=== PATIENT | female | born 1985 | race Caucasian/White ===

== ENCOUNTER → 2020-02-10 11:11 | Outpatient (CLI) | payer OTHER, SELFPAY ==
--- NOTE | 2020-02-10 11:14 | DI.US.S_ITS ---
PROCEDURE: US OB FOLLOW UP INDICATIONS: MILD LEFT RENAL PYELECTASIS 6mm ON ANATOMY SCAN, EFW,JOSEE OUTSIDE/PRIOR DATING DATA: Last menstrual period (LMP): Unknown. LMP-based estimated date of delivery (EVELINA): Unknown. First dating scan (date and location): 10/27/19. Estimated date of delivery (EVELINA) from first dating scan: 03/16/20. TECHNIQUE: Real-time scanning was performed of the fetus, with image documentation and biometric measurements. COMPARISON: [facility], , US OB > 14 WEEKS, 10/27/2019, 8:00. FINDINGS: General: A single living intrauterine gestation is present. Presentation: Cephalic Placenta: Placental position is posterior without previa. Amniotic fluid index: 17.4 cm. heart rate: 120 beats per minute. Maternal cervical canal: Not adequately seen. biometrics: Biparietal diameter: 9.0 cm, 36 weeks 2 days Head circumference: 32.3 cm, 36 weeks 6 days Abdominal circumference: 33.0 cm, 36 weeks 6 days Femur length: 7.1 cm, 36 weeks 2 days Estimated gestational age from initial scan: 35 weeks 0 days Composite gestational age from present scan: 36 weeks 4 days Estimated weight and percentile: 3005 g (89th percentile) Other: A formal anatomic survey was not performed. However, there is mild dilatation of the left renal pelvis, measuring up to approximately 11 mm. Moderate dilatation of the right renal collecting system is present measuring up to 20 mm in AP dimension. The imaged portions of the right ureter also are dilated. IMPRESSION: 1. Single live intrauterine at 36 weeks 4 days (current sonographic EVELINA 03/05/20) is discordant with the dates from the prior ultrasound by 11 days. 2. Estimated weight is within 89th percentile. 3. Moderate right-sided hydronephrosis is of uncertain etiology and could potentially be related to a partial UPJ obstruction. There also is mild left-sided hydronephrosis. A ultrasound is recommended. Dictated by: Luis Abel M.D. on 02/15/2020 at 10:56 Approved by: Luis Abel M.D. on 02/15/2020 at 11:02
== END ==
PROVIDERS: Referring Provider Obstetrics & Gynecology; Visit Provider Obstetrics & Gynecology
DX: O35.8XX0 Maternal care for other (suspected) fetal abnormality and damage, not applicable or unspecified (principal); Z3A.36 36 weeks gestation of pregnancy
CPT/HCPCS: 76816

== ENCOUNTER → 2020-02-21 11:00 | Outpatient (CLI) | payer OTHER, SELFPAY ==
[2020-02-22 08:02] LABS: Strep Grp B PCR NEG for Grp B Strep
== END ==
PROVIDERS: Visit Provider Obstetrics & Gynecology
DX: Z34.83 Encounter for supervision of other normal pregnancy, third trimester (principal); Z3A.36 36 weeks gestation of pregnancy
CPT/HCPCS: 87653

== ENCOUNTER → 2020-02-28 11:16 | Outpatient (CLI) | payer OTHER, SELFPAY ==
--- NOTE | 2020-02-28 11:17 | DI.US.S_ITS ---
PROCEDURE: US OB LIMITED INDICATIONS: JOSEE AND FOLLOW UP RENAL BILATERAL PYELECTASIS OUTSIDE/PRIOR DATING DATA: Last menstrual period (LMP): Unknown. LMP-based estimated date of delivery (EVELINA): Unknown. First dating scan (date and location): 02/10/20. Estimated date of delivery (EVELINA) from first dating scan: 02/28/20. TECHNIQUE: Real-time scanning was performed of the fetus, with image documentation. COMPARISON: [facility], OB FOLLOW UP, 02/10/2020, 11:28. [facility], , OB > 14 WEEKS, 10/27/2019, 8:00. FINDINGS: A single living intrauterine gestation is present. Presentation: Vertex. Placenta: Placental position is posterior, without previa. Amniotic fluid index: 1.4 cm, normal range is 5-24 cm. heart rate: 144 beats per minute. Maternal cervical canal: Not measured Estimated gestational age from initial scan: 37 weeks 4 days Renals: Right renal pelvis measures 60 mm compared to 55 mm. Left renal pelvis measures 45 mm compared to 42 mm.. IMPRESSION: 1. Continued interval prominence of the renal collecting system, with minimal progression. Dictated by: Helena Marie M.D. on 02/28/2020 at 15:11 Approved by: Helena Marie M.D. on 02/28/2020 at 15:13
== END ==
PROVIDERS: Referring Provider Obstetrics & Gynecology; Visit Provider Obstetrics & Gynecology
DX: O35.8XX0 Maternal care for other (suspected) fetal abnormality and damage, not applicable or unspecified (principal); Z3A.37 37 weeks gestation of pregnancy
CPT/HCPCS: 76815

== ENCOUNTER → 2020-03-06 10:04 | Outpatient (CLI) | payer OTHER, SELFPAY ==
--- NOTE | 2020-03-06 10:08 | DI.US.S_ITS ---
PROCEDURE: US OB LIMITED INDICATIONS: PYELECTASIS; EFW, JOSEE OUTSIDE/PRIOR DATING DATA: Last menstrual period (LMP): Unknown. LMP-based estimated date of delivery (EVELINA): Unknown. First dating scan (date and location): 10/27/19. Estimated date of delivery (EVELINA) from first dating scan: 03/16/20. TECHNIQUE: Real-time scanning was performed of the fetus, with image documentation and biometric measurements. COMPARISON: [facility], OB FOLLOW UP, 02/10/2020, 11:28. [facility], , OB > 14 WEEKS, 10/27/2019, 8:00. [facility], OB LIMITED, 02/28/2020, 11:26. FINDINGS: General: A single live intrauterine gestation is present. Presentation: Vertex. Placenta: Placental position is right posterior fundal, without previa. Amniotic fluid index: 18.4 cm, normal range is 5-24 cm. heart rate: 145 beats per minute. Maternal cervical canal: Not seen biometrics: Biparietal diameter: 9.3 cm equals 37 weeks 6 days Head circumference: 33.8 cm equals 38 weeks 6 days Abdominal circumference: 37.3 cm equals 41 weeks 2 days Femur length: 7.7 cm equals 39 weeks 1 day Estimated gestational age from initial scan: 38 weeks 4 days Composite gestational age from present scan: 39 weeks 2 days Estimated weight and percentile: 3973 g, 93rd percentile Measurement variability for biometric dating: +/- 7 days from 14 weeks to 15 weeks 6 days gestation, +/- 10 days from 16 weeks to 21 weeks 6 days gestation, +/- 2 weeks from 22 weeks to 27 weeks 6 days gestation, +/- 3 weeks for 28 weeks gestation or later. weight reference: 4500 g or EFW >90/95% is considered macrosomia or large for gestational age. EFW <10% is small for gestational age. EFW 5% or less is considered intra-uterine growth restriction. Other: The left renal pelvis measures within normal limits at 5.3 cm, with a renal length of 4.5 cm The right renal pelvis measures 24.9 mm (previously measuring 24 mm) with a renal length of 6.6 cm (prior 6 cm) The right distal ureter is dilated to 12.4 cm. IMPRESSION: There is again seen dilatation of the right renal pelvis and the distal right ureter. Distal ureteral obstruction is suspected. A scan is recommended. Normal interval growth when compared to the prior ultrasound examination. The fetus is at the 93rd percentile for estimated weight. Please correlate with macrosomia. Dictated by: Samuel Braun M.D. on 03/06/2020 at 11:16 Approved by: Samuel Braun M.D. on 03/06/2020 at 11:21
== END ==
PROVIDERS: Referring Provider Obstetrics & Gynecology; Visit Provider Obstetrics & Gynecology
DX: O35.8XX0 Maternal care for other (suspected) fetal abnormality and damage, not applicable or unspecified (principal); Z3A.39 39 weeks gestation of pregnancy
CPT/HCPCS: 76815

== ENCOUNTER 2020-03-08 07:21 | Observation (INO) | payer OTHER, SELFPAY ==
[2020-03-08 08:49] LABS: Add Manual Diff / Slide Review NO; Basophils Absolute Auto 0 /uL (0-100); Basophils Percent Auto 0.4 % (0-2); Eosinophils Absolute Auto 100 /uL (0-450); Eosinophils Percent Auto 0.6 % (2-4); Hematocrit 32.3 % (36-46); Hemoglobin 11.2 g/dL (12.0-16.0); Lymphocytes Absolute Auto 1600 /uL (1100-4500); Lymphocytes Percent Auto 15.2 % (25-40); Mean Corpuscular HGB Conc 34.7 % (30-36); Mean Corpuscular Volume 80.7 fL (80-100); Monocytes Absolute Auto 500 /uL (0-900); Monocytes Percent Auto 5.1 % (3-14); Neutrophils Absolute Auto 8100 /uL (1500-7000); Neutrophils Percent Auto 78.7 % (50-75); Platelet Count 200 X10^3/uL (150-400); Red Cell Distribution Width 13.9 % (11.6-14.8); White Blood Cell Count 10.3 X10^3/uL (4.5-11.0)
[2020-03-08 09:02] LABS: Aspartate Aminotransferase 28 IU/L (14-36); BUN Creatinine Ratio 12.1 (6-22); Blood Urea Nitrogen 8 mg/dL (7-17); Estimated Glomerular Filt Rate > 60.0 mL/min (>60)
[2020-03-08 09:25] LABS: Creatinine Urine Random 102.7 mg/dL; Protein (Total) Urine Random 7 mg/dL (0-12); Protein Creatinine Ratio Urine 0.06 GRAM/24H
--- NOTE | 2020-03-08 11:30 | P.TNLD_ITS ---
Visit Information Visit Information Date of evaluation: 03/08/20 Reason for Evaluation: Yes non-stress test Comments/Additional reasons for admission: Brought in for NST due to report of decreased movement this morning. 34-year-old female, known to me, who reports decreased movement this morning. She does feel some movement, but not the bigger movements usually feels. Upon arriving to Center, movement returned to normal. She had some episodes of mild frequent contractions yesterday which resolved. has been complicated by right moderate hydronephrosis, being followed by weekly ultrasounds. [facility] Medical History (Updated 03/08/20 @ 21:20 by Nia Stone MD) Chicken pox (Resolved ~1991) Irregular menstrual cycle (Chronic ~1997) Left elbow fracture (Acute ~2000) Nasal congestion (Acute) Obesity (Acute) PCOS (polycystic ovarian syndrome) (Acute ~2014) Sleep apnea (Acute ~2018) (spontaneous vaginal delivery) (Acute ~2017) Tinea versicolor (Chronic ~2014) Surgical History (Updated 01/20/20 @ 18:29 by Sofia Wong) Anesthesia (Resolved) Status post ORIF of fracture of ankle (Acute ~2000) [place] teeth removed (Acute ~2007) Family History (Updated 01/20/20 @ 18:30 by Sofia Wong) Mother Cancer Hypertension Melanoma Grandfather Cancer Stroke Lung cancer Smoker Grandmother Diabetes mellitus Brother Myocardial infarction Kidney failure Social History marital status: number of children: 1 pets and animals: Yes (X 1 dog) education level: college current occupational exposures/hazards: No 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 Reports some nausea this a.m. but has not eaten anything yet. Exam Vital Signs (past 8 hours): BP 130/89, 137/93, 129/90 then 123-136/87-88 Narrative Exam Narrative: General: Well-appearing female Abdomen gravid, nontender. No right upper quadrant or epigastric tenderness Extremities: Trace pedal edema. DTR 2+ patellar, no clonus NST reactive. Baseline normal with moderate variability, positive for more than to 15 x 15 accelerations, no decelerations [place] occasional contractions Objective Labs Result Diagrams: 03/08/20 08:41 03/08/20 08:41 Labs: Laboratory Results - last 24 hr 03/08/20 03/08/20 03/08/20 08:20 08:41 08:41 WBC 10.3 RBC 4.00 Hgb 11.2 L Hct 32.3 L MCV 80.7 MCH 28.0 MCHC 34.7 RDW 13.9 Plt Count 200 Neut % (Auto) 78.7 H Lymph % (Auto) 15.2 L [place] % (Auto) 5.1 Eos % (Auto) 0.6 L Baso % (Auto) 0.4 Neut # (Auto) 8100 H Lymph # (Auto) 1600 [place] # (Auto) 500 Eos # (Auto) 100 Baso # (Auto) 0 BUN 8 Creatinine 0.66 Estimated GFR > 60.0 BUN/Creatinine Ratio 12.1 Uric Acid 6.0 AST 28 U Random Total Protein 7 Urine Creatinine 102.7 Protein/Creatinin Ratio 0.06 Evaluation Evaluation Laboratory results: Laboratory Tests 03/08/20 03/08/20 03/08/20 08:20 08:41 08:41 WBC 10.3 RBC 4.00 Hgb 11.2 L Hct 32.3 L MCV 80.7 MCH 28.0 MCHC 34.7 RDW 13.9 Plt Count 200 Neut % (Auto) 78.7 H Lymph % (Auto) 15.2 L [place] % (Auto) 5.1 Eos % (Auto) 0.6 L Baso % (Auto) 0.4 Neut # (Auto) 8100 H Lymph # (Auto) 1600 [place] # (Auto) 500 Eos # (Auto) 100 Baso # (Auto) 0 BUN 8 Creatinine 0.66 Estimated GFR > 60.0 BUN/Creatinine Ratio 12.1 Uric Acid 6.0 AST 28 U Random Total Protein 7 Urine Creatinine 102.7 Protein/Creatinin Ratio 0.06 Diagnosis, Plan/Disposition Final Diagnosis (1) Decreased movement affecting management of mother, antepartum: Current Visit: Yes Status: Acute Plan/Disposition Plan: NST reactive, reassuring. Mild elevated DBP, on repeat the BP less than 90, but 87-88. Her baseline is the low 80s.. Preeclamptic labs ordered and were normal. She does not have any preeclamptic symptoms. Will discharge to home. She has a BP cuff at home and will check her BP. Follow-up in 2 days in the office for BP check. Advised her to call for any persistent headache, vision changes, nausea or emesis.
== END 2020-03-08 10:13 | disposition home or self-care (01) ==
PROVIDERS: Admitting Provider Obstetrics & Gynecology; Referring Provider Obstetrics & Gynecology; Visit Provider Obstetrics & Gynecology
DX: O36.8130 Decreased fetal movements, third trimester, not applicable or unspecified (principal); O99.89 Other specified diseases and conditions complicating pregnancy, childbirth and the puerperium; N13.30 Unspecified hydronephrosis; Z3A.38 38 weeks gestation of pregnancy
CPT/HCPCS: 36415; 59025; 59050; 82570; 84156; 84450; 84550; 85025; G0378; G0379

== ENCOUNTER 2020-03-12 15:36 | Observation (INO) | payer OTHER, SELFPAY ==
[2020-03-12 17:02] LABS: Add Manual Diff / Slide Review NO; Basophils Absolute Auto 0 /uL (0-100); Basophils Percent Auto 0.3 % (0-2); Eosinophils Absolute Auto 100 /uL (0-450); Eosinophils Percent Auto 0.7 % (2-4); Hematocrit 32.1 % (36-46); Hemoglobin 11.3 g/dL (12.0-16.0); Lymphocytes Absolute Auto 1800 /uL (1100-4500); Lymphocytes Percent Auto 17.4 % (25-40); Mean Corpuscular HGB Conc 35.1 % (30-36); Mean Corpuscular Hemoglobin 28.5 PG (26-34); Mean Corpuscular Volume 81.2 fL (80-100); Monocytes Absolute Auto 700 /uL (0-900); Monocytes Percent Auto 6.9 % (3-14); Neutrophils Absolute Auto 7700 /uL (1500-7000); Neutrophils Percent Auto 74.7 % (50-75); Platelet Count 209 X10^3/uL (150-400); Red Blood Cell Count 3.96 X10^6/uL (4.0-5.2); White Blood Cell Count 10.3 X10^3/uL (4.5-11.0)
[2020-03-12 17:12] LABS: Creatinine Urine Random 43.2 mg/dL; Protein (Total) Urine Random 9 mg/dL (0-12)
[2020-03-12 17:18] LABS: Aspartate Aminotransferase 24 IU/L (14-36); BUN Creatinine Ratio 14.8 (6-22); Blood Urea Nitrogen 9 mg/dL (7-17); Estimated Glomerular Filt Rate > 60.0 mL/min (>60); Uric Acid 6.1 mg/dL (2.5-6.2)
--- NOTE | 2020-03-12 19:21 | PM.OBTRLD ---
Visit Information Visit Information Date of evaluation: 03/12/20 Primary OB Provider: Nia Stone On-call OB Provider: Kathe Daugherty Reason for Evaluation: Yes other Comments/Additional reasons for admission: This patient is a 34yo @39+3 with a complicated by pyelectasis, presenting for evaluation for preeclampsia after feeling nauseated earlier today and finding her BP to be 151/99 on her home cuff. She denies ALAN, visual changes, SOB, chest pain, RUQ pain, contractions, decreased movement, vaginal bleeding, loss of fluid, or any other complaints. She has been monitored in clinic for pressures above her baseline in the last week, though not hypertensive. She has been evaluated by M for right sided pyelectasis and a dilated right ureter, has a peds urology consult pending. Baby will need renal imaging prior to discharge and to be on antibiotic prophylaxis, amoxicillin 25 mg/kg daily. Of note, abdominal girth is somewhat increased, but per MFM this does not increase risk of shoulder dystocia. She has a history of an uncomplicated prior followed by term delivery, and an early SAB. She has no other health navigator, medical, surgical, or family history. [facility] Medical History Chicken pox (Resolved ~1991) Irregular menstrual cycle (Chronic ~1997) Left elbow fracture (Acute ~2000) Nasal congestion (Acute) Obesity (Acute) PCOS (polycystic ovarian syndrome) (Acute ~2014) Sleep apnea (Acute ~2018) (spontaneous vaginal delivery) (Acute ~2017) Tinea versicolor (Chronic ~2014) Surgical History Anesthesia (Resolved) Status post ORIF of fracture of ankle (Acute ~2000) [place] teeth removed (Acute ~2007) Family History Mother Cancer Hypertension Melanoma Grandfather Cancer Stroke Lung cancer Smoker Grandmother Diabetes mellitus Brother Myocardial infarction Kidney failure Social History marital status: number of children: 1 pets and animals: Yes (X 1 dog) education level: college current occupational exposures/hazards: No 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: [employer] special lesli needs: No Smoking Status: Never smoker second hand exposure: No substance use type: does not use Review of Systems Constitutional Constitutional: Reports system reviewed and no additional complaints, except as documented Cardiovascular Cardiovascular: Reports system reviewed; no additional complaints, except as documented Respiratory Respiratory: Reports system reviewed and no additional complaints, except as documented Gastrointestinal Gastrointestinal: Reports system reviewed and no additional complaints, except as documented Genitourinary Genitourinary: Reports system reviewed and no additional complaints, except as documented Neurologic Neurologic: Reports system reviewed and no additional complaints, except as documented Exam Vital Signs (past 8 hours): 129-151/79-102. Of note, more elevated blood pressures when repeat vitals taken just after covid nasal swab performed. Objective Labs Result Diagrams: 03/12/20 16:50 03/12/20 16:50 Labs: Laboratory Results - last 24 hr 03/12/20 03/12/20 03/12/20 15:45 16:50 16:50 WBC 10.3 RBC 3.96 L Hgb 11.3 L Hct 32.1 L MCV 81.2 MCH 28.5 MCHC 35.1 RDW 14.0 Plt Count 209 Neut % (Auto) 74.7 Lymph % (Auto) 17.4 L [place] % (Auto) 6.9 Eos % (Auto) 0.7 L Baso % (Auto) 0.3 Neut # (Auto) 7700 H Lymph # (Auto) 1800 [place] # (Auto) 700 Eos # (Auto) 100 Baso # (Auto) 0 BUN 9 Creatinine 0.61 Estimated GFR > 60.0 BUN/Creatinine Ratio 14.8 Uric Acid 6.1 AST 24 U Random Total Protein 9 Urine Creatinine 43.2 Protein/Creatinin Ratio 0.20 Evaluation Evaluation Baseline heart rate: 140 Variability: Moderate (11-25) monitor accelerations: Present monitor decelerations: Absent Category of Tracing: I Cervical dilation (cm): 1 Cervical effacement (%): 50 station: -4 Laboratory results: Laboratory Tests 03/12/20 03/12/20 03/12/20 15:45 16:50 16:50 WBC 10.3 RBC 3.96 L Hgb 11.3 L Hct 32.1 L MCV 81.2 MCH 28.5 MCHC 35.1 RDW 14.0 Plt Count 209 Neut % (Auto) 74.7 Lymph % (Auto) 17.4 L [place] % (Auto) 6.9 Eos % (Auto) 0.7 L Baso % (Auto) 0.3 Neut # (Auto) 7700 H Lymph # (Auto) 1800 [place] # (Auto) 700 Eos # (Auto) 100 Baso # (Auto) 0 BUN 9 Creatinine 0.61 Estimated GFR > 60.0 BUN/Creatinine Ratio 14.8 Uric Acid 6.1 AST 24 U Random Total Protein 9 Urine Creatinine 43.2 Protein/Creatinin Ratio 0.20 Comments: BPP 10/10. JOSEE 15.9. Vertex presentation. EFW 8# per most recent growth US. Diagnosis, Plan/Disposition Plan/Disposition Plan: This patient feels well in the center, and meets diagnostic criteria for gestational hypertension but not pre-eclampsia. We discussed that after 37 weeks, this diagnosis is an indication for delivery, and discussed the mechanism of induction of labor given her unfavorable cervix. We also discussed that given that rapid covid tests are not available, tests done now will result in approximately 24 hours. We discussed that without a negative test, patients wear masks during labor and their partners cannot attend deliveries. We discussed that the risk of progression to severe preeclampsia in 24 hours is low, but that the risks include seizure and stroke along with placental abruption and, rarely, . We discussed symptoms of progression into preeclampsia including headache, visual changes, and RUQ pain, and the patient plans to continue to monitor her blood pressures at home tomorrow. Patient is now scheduled for induction of labor with cervical ripening to start tomorrow evening, 23 hours after discharge. Patient and partner vocalized understanding of all of the above, and all questions were answered. OB Disposition: home
== END 2020-03-12 20:00 | disposition home or self-care (01) ==
PROVIDERS: Admitting Provider Obstetrics & Gynecology; Referring Provider Obstetrics & Gynecology; Visit Provider Obstetrics & Gynecology
DX: O13.3 Gestational [pregnancy-induced] hypertension without significant proteinuria, third trimester (principal); O35.8XX0 Maternal care for other (suspected) fetal abnormality and damage, not applicable or unspecified; Z3A.39 39 weeks gestation of pregnancy
CPT/HCPCS: 59025; 59050; 82570; 84156; 84450; 84550; 85025; G0378; G0379

== ENCOUNTER 2020-03-13 18:14 | Inpatient (IN) | payer OTHER, SELFPAY ==
--- NOTE | 2020-03-13 19:28 | P.HPOB_ITS ---
OB HPI Date/Time Date of admission: 03/13/20 Date Patient Seen: 03/13/20 Time Patient Seen: 19:20 History of Present Condition Chief complaint: : 3 Para: 1 Estimated Date of Delivery: 03/16/20 Estimated Gestational Age (weeks): 39 Narrative: This patient is a 34yo @39+4 with a complicated by pyelectasis, presenting for induction for gestational hypertension. She reports that her home BPs since yesterday have been 130s/80s-90s, and she has had no further symptoms. She denies ALAN, visual changes, SOB, chest pain, RUQ pain, contractions, decreased movement, vaginal bleeding, loss of fluid, or any other complaints. She has been monitored in clinic for pressures above her baseline in the last week, though not hypertensive. She has been evaluated by MFM for right sided pyelectasis and a dilated right ureter, has a peds urology consult pending. Baby will need renal imaging prior to discharge and to be on antibiotic prophylaxis, amoxicillin 25 mg/kg daily. Of note, abdominal girth is somewhat increased, but per MFM this does not increase risk of shoulder dystocia. She has a history of an uncomplicated prior followed by term delivery, and an early SAB. She has no other financial risk manager, medical, surgical, or family history. Indications Indication for induction OB: other (gHTN) History of Present care: good care Preadmission Labs Blood type: AB (+) positive -: Antibody screen: negative, GBS status: negative, HBsAG: negative, HIV: negative and RPR/VDLR: negative -: Gonorrhea screen: not detected -: Varicella: immune Integrated screen: low risk 1 hr GTT: 92 Prior (ies) History: G1: 08/2014, 10 wk SAB, uncomplicated G2: 03/2018, , 39+4, 8#3, F, uncomplicated Evaluation Evaluation Baseline heart rate: 140 Variability: Average (6-10) monitor accelerations: Present monitor decelerations: Absent Category of Tracing: I PFSH Medical History Chicken pox (Resolved ~1991) Irregular menstrual cycle (Chronic ~1997) Left elbow fracture (Acute ~2000) Nasal congestion (Acute) Obesity (Acute) PCOS (polycystic ovarian syndrome) (Acute ~2014) Sleep apnea (Acute ~2018) (spontaneous vaginal delivery) (Acute ~2017) Tinea versicolor (Chronic ~2014) Surgical History Anesthesia (Resolved) Status post ORIF of fracture of ankle (Acute ~2000) [place] teeth removed (Acute ~2007) Family History Mother Cancer Hypertension Melanoma Grandfather Cancer Stroke Lung cancer Smoker Grandmother Diabetes mellitus Brother Myocardial infarction Kidney failure Social History marital status: number of children: 1 pets and animals: Yes (X 1 dog) education level: college current occupational exposures/hazards: No 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: [employer] special lesli needs: No Smoking Status: Never smoker second hand exposure: No substance use type: does not use Meds Home Medications and Allergies Home Medications Medication Instructions Recorded Confirmed Type calcium carbonate 200 mg calcium 200 mg PO BID 01/12/20 03/10/20 History (500 mg) chewable tablet prenat.vits,kulwinder,odi-qasg-abdtu 1 tab PO DAILY 01/12/20 03/10/20 History Allergies Allergy/AdvReac Type Severity Reaction Status Date / Time No Known Drug Allergies Allergy Verified 03/10/20 10:47 Review of Systems Constitutional Constitutional: Reports system reviewed and no additional complaints, except as documented Cardiovascular Cardiovascular: Reports system reviewed; no additional complaints, except as documented Respiratory Respiratory: Reports system reviewed and no additional complaints, except as documented Gastrointestinal Gastrointestinal: Reports system reviewed and no additional complaints, except as documented Genitourinary Genitourinary: Reports system reviewed and no additional complaints, except as documented Neurologic Neurologic: Reports system reviewed and no additional complaints, except as documented Exam Vital Signs (past 8 hours): 129/79, HR 114, T 36.8C Const General: cooperative, healthy appearing and comfortable Resp Effort & Inspection: normal respiratory effort Auscultation: clear to auscultation bilaterally Cardio Rate: regular rate Rhythm: regular rhythm GI Palpation: soft and No tender External Female Exam: external appearance normal Extrem General: normal to inspection Assessment and Plan Assessment and Plan Assessment and Plan narrative: This patient presents for induction of labor for gestational hypertension. Her initial BP was not elevated, she is feeling well, and PIH labs will be repeated along with her routine admission labs. Plan is for cervical ripening with cervidil followed by pitocin induction in the morning. - CBC, T&S, PIH panel, urine p/c ratio - monitoring per protocol - cervidil when feasible
[2020-03-13] MEDS: DINOPROSTONE VAG (CERVIDIL) 10 MG VAG (20:18)
[2020-03-13 20:29] VITALS: BP 129/79
[2020-03-13 21:12] LABS: Add Manual Diff / Slide Review NO; Basophils Absolute Auto 0 /uL (0-100); Basophils Percent Auto 0.2 % (0-2); Eosinophils Absolute Auto 100 /uL (0-450); Eosinophils Percent Auto 0.6 % (2-4); Hematocrit 31.8 % (36-46); Lymphocytes Absolute Auto 1800 /uL (1100-4500); Lymphocytes Percent Auto 16.5 % (25-40); Mean Corpuscular HGB Conc 34.5 % (30-36); Mean Corpuscular Volume 81.2 fL (80-100); Monocytes Absolute Auto 600 /uL (0-900); Monocytes Percent Auto 5.1 % (3-14); Neutrophils Absolute Auto 8500 /uL (1500-7000); Neutrophils Percent Auto 77.6 % (50-75); Platelet Count 209 X10^3/uL (150-400); Red Blood Cell Count 3.91 X10^6/uL (4.0-5.2); Red Cell Distribution Width 13.8 % (11.6-14.8)
[2020-03-13 21:21] LABS: Aspartate Aminotransferase 20 IU/L (14-36); BUN Creatinine Ratio 13.5 (6-22); Blood Urea Nitrogen 10 mg/dL (7-17); Estimated Glomerular Filt Rate > 60.0 mL/min (>60)
[2020-03-14 02:03] LABS: Creatinine Urine Random 92.1 mg/dL; Protein (Total) Urine Random 8 mg/dL (0-12); Protein Creatinine Ratio Urine 0.08 GRAM/24H
[2020-03-14] MEDS: LACTATED RINGERS 1,000 ML 100 ML IV (08:06)
--- NOTE | 2020-03-14 08:57 | PM.OBPNLAB ---
Date/Time Date Patient Seen: 03/14/20 Time Patient Seen: 08:00 Pain Control Pain control: epidural Pelvic Exam Dilation (cm): 7 Effacement (%): 100 station: -1 Amniotic membrane status: Ruptured Comments: Spontaneous rupture membranes at 0220, thin meconium. Cervidil fell out with the spontaneous rupture membranes. Contractions Monitor mode: External Contraction frequency (min): 2 (q 2 1/2 minutes) Contraction pattern: Regular Contraction intensity: Strong/Firm Status status: Category ll Heart Rate Baseline: 155 Monitor Accelerations: Periodic (no spontaneous accelerations currently, but good acceleration now after exam) Monitor Decelerations: Absent Monitor Variability: Minimal Comments: Called at 0230 with patient's SROM. Patient only with rare deceleration at that time, resolved. I checked in by phone after her epidural at 0720 and informed of the severe deceleration after epidural with BP dropped. Resolved with IV hydration and ephedrine. On review of EFM, prior FHR with positive accelerations and moderate variability, rare variable or late deceleration initially. Just prior to the epidural with sitting, she had some subtle recurrent late decelerations and decreased variability. After the epidural she had an approximately 90 second severe deceleration which resolved with the position change, hydration and ephedrine. Now EFM still with some decreased variability, no further decelerations. No spontaneous accelerations, but positive acceleration with exam at 8:00 a.m. Assessment and Plan Assessment: active labor (Status post Cervidil for induction) and induction ongoing Comments: Continue close observation.
--- NOTE | 2020-03-14 09:51 | PM.OBPNLAB ---
Date/Time Date Patient Seen: 03/14/20 Time Patient Seen: 09:51 Pain Control Pain control: tolerating well and epidural Comments: Feeling some increased rectal pressure Pelvic Exam Dilation (cm): 9 Effacement (%): 100 station: +1 Amniotic membrane status: Ruptured Comments: Cervix with anterior lip but extending around to left side. Initially had her push with the contraction to try to reduce the anterior lip, but then noted cervix extends down on her left side. position JOHANNA, just past LOT Contractions Monitor mode: External Contraction frequency (min): 2 (q 2 1/2 minutes) Contraction pattern: Regular Contraction intensity: Strong/Firm Status status: Category ll Heart Rate Baseline: 150 Monitor Accelerations: Absent (But positive acceleration with exam.) Monitor Decelerations: Absent Monitor Variability: Minimal Assessment and Plan Assessment: active labor Plan: continuous present management Comments: Will recheck cervix in approximately 20 minutes, earlier as needed
[2020-03-14] MEDS: OXYTOCIN 10 UNIT/ML VIAL 20 UNIT (10:15)
--- NOTE | 2020-03-14 11:06 | P.PCNOB_ITS ---
Events: Induced HTN Labor & Delivery Delivery date: 03/14/20 Cervical ripening method: per Cervidil protocol Induction method: other (Spontaneous rupture membranes) Route of delivery: L&D Laceration Description: Perineal - 2nd Degree (small) Delivery repair: chromic (3-0 chromic) Estimated blood loss (mL): 300 Anesthesia type: Epidural Complications: none Narrative: She progressed to completely dilated. She began pushing, pushed over 2 contractions and had a spontaneous vaginal delivery over an intact perineum from the JOHANNA position. No nuchal cord was present. Anterior followed by posterior shoulder were delivered without difficulty with the patient pushing, followed by the remainder of the body. A baby girl was delivered at 1007. The baby cried spontaneously, appeared vigorous and was placed on the maternal abdomen. After 1 minute, cord was clamped and cut. Placenta delivered spontaneously approximately 5 minutes later. She had normal bleeding after delivery of the placenta. She was given routine Pitocin IV. On inspection she had a small second-degree perineal laceration which appeared to have opened up along a prior scar tissue. It was repaired in the usual fashion with 3-0 chromic. Approximately 3 mL of 1% lidocaine was injected for local anesthesia. She did well and was left to recover in good condition. Weight was 9 lb 12 oz. Apgars 9 and 9 at 1 and 5 minutes respectively. Baby 1: Infant gender: Female Presentation: vertex position: Right Occiput Anterior (left occiput anterior) Placenta delivery description: Spontaneous cord vessel description: 3 Vessels Plan for aftercare: Left to recover in good condition. Patient was breast- feeding.
[2020-03-14] MEDS: METHYLERGONOVINE 0.2 MG/ML VIAL IM (12:51)
[2020-03-14] MEDS: miSOPROStoL 200 MCG TABLET 800 MCG PR (12:58)
[2020-03-14] MEDS: IBUPROFEN 600 MG TABLET PO ×2 (12:58→19:55)
[2020-03-14] MEDS: miSOPROStoL 200 MCG TABLET PR (12:59)
--- NOTE | 2020-03-14 13:06 | PM.OBPN.1 ---
Objective Labs Result Diagrams: 03/13/20 19:00 03/13/20 19:00 Labs: Laboratory Results - last 24 hr 03/13/20 03/13/20 03/13/20 19:00 19:00 19:00 WBC 11.0 RBC 3.91 L Hgb 11.0 L Hct 31.8 L MCV 81.2 MCH 28.0 MCHC 34.5 RDW 13.8 Plt Count 209 Neut % (Auto) 77.6 H Lymph % (Auto) 16.5 L [place] % (Auto) 5.1 Eos % (Auto) 0.6 L Baso % (Auto) 0.2 Neut # (Auto) 8500 H Lymph # (Auto) 1800 [place] # (Auto) 600 Eos # (Auto) 100 Baso # (Auto) 0 BUN 10 Creatinine 0.74 Estimated GFR > 60.0 BUN/Creatinine Ratio 13.5 Uric Acid 6.0 AST 20 U Random Total Protein Urine Creatinine Protein/Creatinin Ratio Blood Type AB Positive Antibody Screen Negative 03/14/20 01:10 WBC RBC Hgb Hct MCV MCH MCHC RDW Plt Count Neut % (Auto) Lymph % (Auto) [place] % (Auto) Eos % (Auto) Baso % (Auto) Neut # (Auto) Lymph # (Auto) [place] # (Auto) Eos # (Auto) Baso # (Auto) BUN Creatinine Estimated GFR BUN/Creatinine Ratio Uric Acid AST U Random Total Protein 8 Urine Creatinine 92.1 Protein/Creatinin Ratio 0.08 Blood Type Antibody Screen Assessment & Plan Time Spent With Patient Time: Total time spent is greater than 50% in coordination of care (as documented) at patient's floor/unit and/or counseling patient:
[2020-03-14] MEDS: CARBOPROST 250 MCG/ML AMPUL IM ×2 (13:10→14:48)
[2020-03-14 13:21] VITALS: BP 128/64; PULSE 72; RESP 17; TEMP 36.8
[2020-03-14] MEDS: TRANEXAMIC ACID 1,000 MG in SODIUM CHLORIDE 0.9% 100 ML 400 ML IV ×2 (13:41→14:34)
[2020-03-14 14:42] LABS: Prothrombin Time 11.6 SECONDS (10.1-12.7)
[2020-03-14 14:43] LABS: Hematocrit 34.1 % (36-46); Hemoglobin 11.7 g/dL (12.0-16.0); Mean Corpuscular HGB Conc 34.2 % (30-36); Mean Corpuscular Hemoglobin 27.6 PG (26-34); Mean Corpuscular Volume 80.8 fL (80-100); Platelet Count 201 X10^3/uL (150-400); Red Blood Cell Count 4.22 X10^6/uL (4.0-5.2); Red Cell Distribution Width 14.2 % (11.6-14.8); White Blood Cell Count 19.7 X10^3/uL (4.5-11.0)
[2020-03-14 14:49] LABS: PTT Partial Thromboplastin Tim 26 SECONDS (26.4-36.2)
[2020-03-14] MEDS: AMPICILLIN/SULBACTAM 3 GM 3 GM in SODIUM CHLORIDE 0.9% 100 ML IV (15:00)
--- NOTE | 2020-03-14 15:13 | P.PNOB_ITS ---
Subjective - OB Subjective Patient comments: other (Patient felt heavier bleeding through vagina and called the nurse. Initially crampy after the Hemabate, now improved) Date Patient Seen: 03/14/20 Time Patient Seen: 13:00 Interval history: Called with report of patient having heavy bleeding, over 2 hours status post spontaneous vaginal delivery. She had only had a small second-degree perineal laceration which resolved visible externally. Exam Vital Signs (past 8 hours): Afebrile. BP 128/78, after Methergine now BP 150/73. Pulse 91 Beaver placed and good urine output, with clear urine in Beaver tube as well. Narrative Exam Narrative: General well-appearing female. Not feeling any lightheadedness Abdomen: Soft, nondistended Fundus U +4, firm. Rectal exam: Misoprostol 1000 mcg given. Vaginal/bimanual examination, approximately 300 mL of clot evacuated from uterus, both at lower uterine segment and within the uterus. Uterine massage given. Bleeding decreased to intermittent small trickle of bright red blood. Fundus overall firm. Objective Labs Result Diagrams: 03/15/20 05:30 03/13/20 19:00 Labs: Laboratory Results - last 24 hr 03/13/20 03/13/20 03/13/20 19:00 19:00 19:00 WBC 11.0 RBC 3.91 L Hgb 11.0 L Hct 31.8 L MCV 81.2 MCH 28.0 MCHC 34.5 RDW 13.8 Plt Count 209 Neut % (Auto) 77.6 H Lymph % (Auto) 16.5 L [place] % (Auto) 5.1 Eos % (Auto) 0.6 L Baso % (Auto) 0.2 Neut # (Auto) 8500 H Lymph # (Auto) 1800 [place] # (Auto) 600 Eos # (Auto) 100 Baso # (Auto) 0 PT INR APTT BUN 10 Creatinine 0.74 Estimated GFR > 60.0 BUN/Creatinine Ratio 13.5 Uric Acid 6.0 AST 20 U Random Total Protein Urine Creatinine Protein/Creatinin Ratio Blood Type AB Positive Antibody Screen Negative 03/14/20 03/14/20 03/14/20 01:10 13:47 13:47 WBC 19.7 H D RBC 4.22 Hgb 11.7 L Hct 34.1 L MCV 80.8 MCH 27.6 MCHC 34.2 RDW 14.2 Plt Count 201 Neut % (Auto) Lymph % (Auto) [place] % (Auto) Eos % (Auto) Baso % (Auto) Neut # (Auto) Lymph # (Auto) [place] # (Auto) Eos # (Auto) Baso # (Auto) PT 11.6 INR 1.0 APTT BUN Creatinine Estimated GFR BUN/Creatinine Ratio Uric Acid AST U Random Total Protein 8 Urine Creatinine 92.1 Protein/Creatinin Ratio 0.08 Blood Type Antibody Screen 03/14/20 13:47 WBC RBC Hgb Hct MCV MCH MCHC RDW Plt Count Neut % (Auto) Lymph % (Auto) [place] % (Auto) Eos % (Auto) Baso % (Auto) Neut # (Auto) Lymph # (Auto) [place] # (Auto) Eos # (Auto) Baso # (Auto) PT INR APTT 26 L BUN Creatinine Estimated GFR BUN/Creatinine Ratio Uric Acid AST U Random Total Protein Urine Creatinine Protein/Creatinin Ratio Blood Type Antibody Screen Assessment & Plan Plan day: 0 plan OB: other Comments: Delayed hemorrhage, due to probable uterine atony. Uterus U +4. After delivery she had been at or 1 finger below the umbilicus. Clots evacuated from the uterus. Misoprostol 1000 mcg given and Methergine 0.2 mg IM x1 given since BP was normal at that time. After evacuation of the clots, her bleeding decreased but she still had an intermittent trickle of brighter red blood. Hemabate 250 mcg given at 1:10 p.m.. CBC, PT, PTT ordered. I verified she had a blood type and antibody screen in the blood bank. A 2nd IV was placed. Her bleeding fairly well controlled, not much on her pad until she lifted her legs or some minimal pressure on her fundus and then she would have spurt, flow of bright red blood. Her Pitocin had finished after delivery and an additional bag of Pitocin 30 units in 500 mls was infused. Tranexamic acid 1 g IV x1 given, finished infusing at 2:00 p.m. With observation she was not having anything spontaneously on the pad, but with elevating her legs to check or to look, with movement again would still have a spurt of some heavier than normal bleeding onto the pad. Repeat exam performed. Small amount of clots evacuated from lower uterine segment. I could not reach past the lower uterine segment since uterus now rhett down well. I could feel a little clot the on my finger, but uterus significantly contracted down. Repeat tranexamic acid 1 g IV given, approximate of 30 minutes after 1st dose and Hemabate 250 mcg given 90 minutes after her 1st dose. Fundus is U +2, firm. Her bleeding decreased to normal and has continued to remain light. Unasyn 3 g IV x1 given. Delayed hemorrhage, improved after multiple uterotonics and tranexamic acid. Bleeding light to minimal now. QBL 1574 ml Will repeat CBC in a.m. Time Spent With Patient Time: Total time spent is greater than 50% in coordination of care (as documented) at patient's floor/unit and/or counseling patient: Time with patient: Greater than 35 minutes
[2020-03-14 19:04] LABS: COVID19 -Nasal RAPID Negative (Negative)
[2020-03-15] MEDS: IBUPROFEN 600 MG TABLET PO (02:02)
[2020-03-15 05:56] LABS: Add Manual Diff / Slide Review NO; Basophils Absolute Auto 0 /uL (0-100); Basophils Percent Auto 0.3 % (0-2); Eosinophils Absolute Auto 0 /uL (0-450); Eosinophils Percent Auto 0.3 % (2-4); Hematocrit 28.7 % (36-46); Hemoglobin 9.9 g/dL (12.0-16.0); Lymphocytes Absolute Auto 1300 /uL (1100-4500); Lymphocytes Percent Auto 13.2 % (25-40); Mean Corpuscular HGB Conc 34.4 % (30-36); Mean Corpuscular Volume 81.3 fL (80-100); Monocytes Absolute Auto 700 /uL (0-900); Monocytes Percent Auto 6.9 % (3-14); Neutrophils Absolute Auto 7900 /uL (1500-7000); Neutrophils Percent Auto 79.3 % (50-75); Platelet Count 175 X10^3/uL (150-400); Red Blood Cell Count 3.53 X10^6/uL (4.0-5.2); Red Cell Distribution Width 14.3 % (11.6-14.8)
--- NOTE | 2020-03-15 08:46 | PM.OBPN.1 ---
Subjective - OB Subjective Patient comments: no complaints, pain well controlled and tolerating diet baby status: doing well feeding status: exclusively breast feeding Narrative: Feels well. He ambulating without problems. Feels steady on her feet. Lochia light. without problems. Moods are fine. Date Patient Seen: 03/15/20 Time Patient Seen: 10:00 Exam Vital Signs (past 8 hours): Afebrile, BP 128/86 Pulse 101 RR Narrative Exam Narrative: General: Well-appearing female Abdomen: Soft, nontender, nondistended. Fundus U-2, firm, nontender Extremities: Trace pedal edema Objective Labs Result Diagrams: 03/15/20 05:30 03/13/20 19:00 Labs: Laboratory Results - last 24 hr 03/12/20 03/14/20 03/14/20 19:42 13:47 13:47 WBC 19.7 H D RBC 4.22 Hgb 11.7 L Hct 34.1 L MCV 80.8 MCH 27.6 MCHC 34.2 RDW 14.2 Plt Count 201 Neut % (Auto) Lymph % (Auto) [place] % (Auto) Eos % (Auto) Baso % (Auto) Neut # (Auto) Lymph # (Auto) [place] # (Auto) Eos # (Auto) Baso # (Auto) PT 11.6 INR 1.0 APTT COVID-19 PCR Negative 03/14/20 03/15/20 13:47 05:30 WBC 10.0 RBC 3.53 L Hgb 9.9 L Hct 28.7 L MCV 81.3 MCH 28.0 MCHC 34.4 RDW 14.3 Plt Count 175 Neut % (Auto) 79.3 H Lymph % (Auto) 13.2 L [place] % (Auto) 6.9 Eos % (Auto) 0.3 L Baso % (Auto) 0.3 Neut # (Auto) 7900 H Lymph # (Auto) 1300 [place] # (Auto) 700 Eos # (Auto) 0 Baso # (Auto) 0 PT INR APTT 26 L COVID-19 PCR Assessment & Plan Plan day: 1 plan OB: discharge home Comments: Patient status post delayed hemorrhage. Lochia remains light now. Ambulating without problems. Desires discharge to home. Mild gestational hypertension, only brief BP elevation after Methergine x1 yesterday when BP was normal, now remains improved. Discharge home. She will check her BP this week at home and call if elevated. If normal routine follow-up in 5 weeks. Time Spent With Patient Time: Total time spent is greater than 50% in coordination of care (as documented) at patient's floor/unit and/or counseling patient: Time with patient: less than 15 minutes
--- NOTE | 2020-03-15 11:34 | P.DS_ITS ---
History of Present Illness History of Present Illness Chief complaint: Labor & Delivery Narrative: Called with report of patient having heavy bleeding, over 2 hours status post spontaneous vaginal delivery. She had only had a small second-degree perineal laceration which resolved visible externally. Discharge Providers Provider Date of admission: 03/13/20 18:14 Consults: 03/15/20 10:59 Consult to Country Printer Apprentice Routine Comment: Discharge provider: Nia Stone MD Exam - Pediatric Vital Signs Vital Signs: Vital Signs BP 129/79 03/13/20 20:29 Objective Labs Result Diagrams: 03/15/20 05:30 03/13/20 19:00 Labs: Laboratory Results - last 24 hr 03/12/20 03/14/20 03/14/20 19:42 13:47 13:47 WBC 19.7 H D RBC 4.22 Hgb 11.7 L Hct 34.1 L MCV 80.8 MCH 27.6 MCHC 34.2 RDW 14.2 Plt Count 201 Neut % (Auto) Lymph % (Auto) [place] % (Auto) Eos % (Auto) Baso % (Auto) Neut # (Auto) Lymph # (Auto) [place] # (Auto) Eos # (Auto) Baso # (Auto) PT 11.6 INR 1.0 APTT COVID-19 PCR Negative 03/14/20 03/15/20 13:47 05:30 WBC 10.0 RBC 3.53 L Hgb 9.9 L Hct 28.7 L MCV 81.3 MCH 28.0 MCHC 34.4 RDW 14.3 Plt Count 175 Neut % (Auto) 79.3 H Lymph % (Auto) 13.2 L [place] % (Auto) 6.9 Eos % (Auto) 0.3 L Baso % (Auto) 0.3 Neut # (Auto) 7900 H Lymph # (Auto) 1300 [place] # (Auto) 700 Eos # (Auto) 0 Baso # (Auto) 0 PT INR APTT 26 L COVID-19 PCR Discharge Plan Discharge Plan Patient Disposition: Home Discharge comment: Follow-up appointment in 5 weeks Discharge orders & Medications Prescriptions: New acetaminophen 325 mg Tablet 650 mg PO Q6HR PRN (Reason: Pain, Mild (1-3)) Qty: 0 RF: 0 ibuprofen 600 mg Tablet 600 mg PO Q6HR PRN (Reason: Pain, Mild (1-3)) Qty: 0 RF: 0 Continued prenat.vits,kulwinder,[id number] Tablet 1 tab PO DAILY RF: 0 calcium carbonate [Tums [place]hers] 200 mg calcium (500 mg) tablet,chewable 200 mg PO BID RF: 0 Follow up/Referrals: Nia Stone MD [Physician] - 1 Month (follow up in 5 weeks for a visit with me) Discharge Health Status Multidrug resistant organism: No MDRO Diet/Activity/Treatments Diet: Regular Activity: Nothing in the vagina, no tampons and no intercourse for 6 weeks. Call for heavy vaginal bleeding, persistent fever greater than 100.1, persistent nausea or vomiting, or or persistent abdominal pain Skin/Wound/Dressing Care Report to your healthcare provider any signs of infection, such as:: chills, fever and increased pain
[2020-03-15 14:11] LABS: Blood Urea Nitrogen 10 mg/dL (7-17); Calcium 8.6 mg/dL (8.4-10.2); Carbon Dioxide 24 mmol/L (22-32); Chloride 107 mmol/L (98-107); Estimated Glomerular Filt Rate > 60.0 mL/min (>60); Glucose 81 mg/dL (70-100); HEMOLYSIS < 15 (0-50); Potassium 3.9 mmol/L (3.4-5.1); Sodium 137 mmol/L (137-145)
--- NOTE | 2020-03-17 20:48 | PM.OBDS.1 ---
Discharge Providers Provider Date of admission: 03/13/20 18:14 Discharge Date: 03/15/20 Consults: 03/15/20 10:59 Consult to Elevator Tender Routine Comment: Discharge provider: Nia Stone MD Summary Hospital Course Date Patient Seen: 03/15/20 Time Patient Seen: 10:00 Procedures: Spontaneous vaginal delivery Induction of labor Hospital Course: This patient is a 34yo @39+4 with a complicated by right pyelectasis and dilated right ureter, who was admitted on 03/13/20 for induction for gestational hypertension. The last week she developed and initial elevated BP, but then not recurrent, borderline BP pees. She subsequently developed more persistent elevated BP's consistent with gestational hypertension. Preeclamptic labs were normal. She had an M consult for the pyelectasis/hydronephrosis grade 4, which was diagnosed and the 3rd trimester. She had also had an antepartum telemedicine consult with the pediatric urologist and paint mixer. She was followed with weekly ultrasounds to check on the kidneys and JOSEE the last few weeks of . If left kidney remained normal, it was felt that she could deliver at our institution and after a renal ultrasound, be set up for further follow-up with the pediatric urologists and paint mixer , with time frame to be determined by the ultrasound prior to discharge home. Baby was also to be discharged on prophylactic antibiotics, amoxicillin. She underwent induction of labor with starting with Cervidil for cervical ripening. She kicked into active labor with the Cervidil. After the Cervidil was removed, she continued to progress in labor and progressed to a vaginal delivery. She had a quick 2nd stage and had a spontaneous vaginal delivery of a 9 lb 12 oz female infant with Apgars of 9 and 9 at 1 and 5 minutes respectively. The baby did well . The baby did have an ultrasound on the day of and the hydraulic press tender was following up with the pediatric urologist by phone. Her BP had only a brief elevation during labor, otherwise remained normal except short elevation after receiving Methergine x1 dose. The patient had normal bleeding after delivery of the placenta, but over 2.5 hours later had a delayed hemorrhage, with the uterus firm but filled with multiple clots. Cause of the bleeding was felt to be uterine atony, likely due to the large size baby the with now uterine full of clots. She had manual evacuation of the clots and was treated with utero tonics and tranexamic acid. Initially bleeding had significantly slowed with evacuation clots and initial utero tonics but was still heavier than normal and she thus received additional doses of medication. Bleeding then decreased to very light. For total treatment she received Pitocin IV, misoprostol 1000mcg per rectum, Methergine x1 dose since her BP was normal at that time, Hemabate Q 90 minutes x2 and tranexamic acid x 2 doses. QBL was 1574ml. Hemoglobin subsequently decreased from pre delivery 11.0, on next day day 9.9. Her bleeding had then continued she remained normal. On day 1 she felt well. She was ambulating without difficulty. Her BP remained normal Lochia remained normal. She was breast-feeding without problems. She desired discharge to home and was discharged in good condition. Baby was discharged and directions for follow-up were pending from the hydraulic press tender at the time of my visit with her. She has a BP cuff at home and will check her BP at home this week and call if elevated. If BP remains normal, then routine visit in 5 weeks Discharge Diagnosis (1) Gestational hypertension: Status: Acute (2) Status post normal vaginal delivery: Status: Acute Time Spent with Patient Time attestation: Total time spent providing and/or coordinating discharge services: 15 minutes Objective Labs Result Diagrams: 03/15/20 05:30 03/15/20 13:36 Exam Vital Signs (past 8 hours): Afebrile, BP 128/86 pulse 101 Narrative Exam Narrative: General: Well-appearing female Abdomen: Soft, nontender, nondistended. Fundus U -2, firm, nontender Extremities: Trace pedal edema Discharge Plan Discharge Plan Patient Disposition: Home Discharge comment: Follow-up appointment in 5 weeks Discharge orders & Medications Prescriptions: New acetaminophen 325 mg Tablet 650 mg PO Q6HR PRN (Reason: Pain, Mild (1-3)) Qty: 0 RF: 0 ibuprofen 600 mg Tablet 600 mg PO Q6HR PRN (Reason: Pain, Mild (1-3)) Qty: 0 RF: 0 Continued prenat.vits,kulwinder,[id number] Tablet 1 tab PO DAILY RF: 0 calcium carbonate [Tums [place]] 200 mg calcium (500 mg) tablet,chewable 200 mg PO BID RF: 0 Follow up/Referrals: Nia Stone MD [Physician] - 1 Month ( Appointment on , March at 10:15 AM with check in time 10:00 am with . ) Discharge Health Status Multidrug resistant organism: No MDRO Diet/Activity/Treatments Diet: Regular Activity: Nothing in the vagina, no tampons and no intercourse for 6 weeks. Call for heavy vaginal bleeding, persistent fever greater than 100.1, persistent nausea or vomiting, or or persistent abdominal pain Skin/Wound/Dressing Care Report to your healthcare provider any signs of infection, such as:: chills, fever and increased pain Visit Report/Discharge Packet Instructions: DI for Labor and Delivery, Vaginal Discharges patient from system. Discharge Date/Time: 03/15/20 15:50
== END 2020-03-15 15:50 | disposition home or self-care (01) | DRG 807 ==
PROVIDERS: Obstetrics & Gynecology; Pediatrics; Admitting Provider Obstetrics & Gynecology; Referring Provider Obstetrics & Gynecology; Visit Provider Obstetrics & Gynecology
DX: O13.4 Gestational [pregnancy-induced] hypertension without significant proteinuria, complicating childbirth (principal); Z37.0 Single live birth; O72.2 Delayed and secondary postpartum hemorrhage; Z3A.39 39 weeks gestation of pregnancy; O70.1 Second degree perineal laceration during delivery; Z11.59 Encounter for screening for other viral diseases
CPT/HCPCS: 01967; 36415; 59050; 59200; 59410; 80048; 82570; 84156; 84450; 84550; 85025; 85027; 85610; 85730; 86850; 86900; 86901; 87635; G0379; J0295; J2210; J2590; S0191

== ENCOUNTER → 2021-07-04 15:05 | Outpatient (CLI) | payer OTHER, SELFPAY ==
--- NOTE | 2021-07-04 15:06 | DI.US.S_ITS ---
PROCEDURE: US OB <= 14 WEEKS FETUS INDICATIONS: DATING AND VIABILITY OUTSIDE/PRIOR DATING DATA: Last menstrual period (LMP): 04/25/2021. LMP-based estimated date of delivery (EVELINA): 01/30/2022. First dating scan (date and location): 07/04/2021. Estimated date of delivery (EVELINA) from first dating scan: 02/02/2022. TECHNIQUE: Real-time scanning was performed of the fetus and maternal pelvic organs, with image documentation. Endovaginal scanning was also performed to better visualize the fetus and maternal ovaries. COMPARISON: None. FINDINGS: Embryo: 2.8 cm corresponding to gestational age of 9 weeks 4 days Heart rate: 175 bpm Small perigestational hemorrhage measuring 1 x 0.7 x 0.5 cm Measurement variability in dating: +/- 4 weeks by LMP, +/- 7 days by mean sac diameter (use before 6 weeks gestation if crown-rump length not able to be measured), +/- 5 days by crown-rump length (up to 8 weeks 6 days gestation), +/- 7 days by crown-rump length (up to 13 weeks 6 days gestation). Maternal organs: Ovaries are within normal limits. IMPRESSION: 1. [place] living intrauterine at 9 weeks 4 days based on today's crown rump length. 2. Small perigestational hemorrhage. Dictated by: Vitaliy Dunaway M.D. on 07/04/2021 at 15:28 Approved by: Vitaliy Dunaway M.D. on 07/04/2021 at 15:32
== END ==
PROVIDERS: Referring Provider Obstetrics & Gynecology; Visit Provider Obstetrics & Gynecology
DX: O26.891 Other specified pregnancy related conditions, first trimester (principal); Z3A.09 9 weeks gestation of pregnancy
CPT/HCPCS: 76801; 76817

== ENCOUNTER → 2021-07-16 10:51 | Outpatient (CLI) | payer OTHER, SELFPAY ==
[2021-07-16 11:26] LABS: Add Manual Diff / Slide Review NO; Basophils Absolute Auto 100 /uL (0-100); Basophils Percent Auto 0.5 % (0-2); Eosinophils Absolute Auto 100 /uL (0-450); Eosinophils Percent Auto 1.1 % (2-4); Hematocrit 37.7 % (36-46); Hemoglobin 12.7 g/dL (12.0-16.0); Lymphocytes Absolute Auto 2100 /uL (1100-4500); Lymphocytes Percent Auto 18.1 % (25-40); Mean Corpuscular HGB Conc 33.7 % (30-36); Mean Corpuscular Hemoglobin 27.4 PG (26-34); Mean Corpuscular Volume 81.4 fL (80-100); Monocytes Absolute Auto 600 /uL (0-900); Monocytes Percent Auto 4.8 % (3-14); Neutrophils Absolute Auto 8700 /uL (1500-7000); Neutrophils Percent Auto 75.5 % (50-75); Platelet Count 244 X10^3/uL (150-400); Red Blood Cell Count 4.64 X10^6/uL (4.0-5.2); Red Cell Distribution Width 13.7 % (11.6-14.8); White Blood Cell Count 11.5 X10^3/uL (4.5-11.0)
[2021-07-16 11:38] LABS: Appearance Urine UA CLEAR; Bilirubin Urine UA NEGATIVE (NEGATIVE); Color Urine UA YELLOW; Glucose Urine UA NEGATIVE (Negative); Ketones Urine UA NEGATIVE (NEGATIVE); Leukocyte Esterase Urine UA NEGATIVE (NEGATIVE); Nitrite Urine UA NEGATIVE (Negative); Occult Blood Urine UA NEGATIVE (Negative); Protein Urine UA NEGATIVE (Negative); Specific Gravity Urine UA <=1.005 (1.000-1.035); Urobilinogen Urine UA 0.2 E.U./dL (0.2)
[2021-07-16 16:26] LABS: Hepatitis B Surface Antigen NEGATIVE s/c (NEGATIVE); Rubella Antibody IgG 50.7 IU/mL (>15)
[2021-07-16 16:48] LABS: HIV 1 & 2 Ab/Ag 4th Gen Combo NEGATIVE (NEGATIVE); Hep C Virus Ab w/Reflex Quant NEGATIVE s/c (NEGATIVE)
[2021-07-17 08:13] LABS: RPR Screen Non Reactive (Non Reactive)
[2021-07-17 14:19] LABS: Varicella IgG Antibody 905 index (Immune >165)
== END ==
PROVIDERS: Referring Provider Obstetrics & Gynecology; Visit Provider Obstetrics & Gynecology
DX: Z34.81 Encounter for supervision of other normal pregnancy, first trimester (principal)
CPT/HCPCS: 36415; 80055; 81003; 86787; 86803; 86850; 86900; 86901; 87086; 87389

== ENCOUNTER → 2021-08-01 11:48 | Outpatient (CLI) | payer OTHER, SELFPAY ==
[2021-08-01 14:03] LABS: Urine N gonorrhoeae NOT DETECTED
[2021-08-01 14:05] LABS: Urine Chlamydia NOT DETECTED
== END ==
PROVIDERS: PCP Student in an Organized Health Care Education/Training Program; Visit Provider Obstetrics & Gynecology
DX: Z11.3 Encounter for screening for infections with a predominantly sexual mode of transmission (principal); Z34.82 Encounter for supervision of other normal pregnancy, second trimester
CPT/HCPCS: 87491; 87591

== ENCOUNTER → 2021-09-03 15:08 | Outpatient (CLI) | payer OTHER, SELFPAY ==
[2021-09-07 14:57] LABS: AFP, Serum 30.6 ng/mL (.); Estriol, Free 0.98 ng/mL (.); Inhibin A, Dimeric 190.99 pg/mL (.); Inhibin A, MoM 1.55 (.); Maternal Ethnicity Caucasian (.); Maternal Weight 251 lbs (.); Number of Fetuses No (.); OSBR Risk 1 IN 10000 (.); Results Report (.); Test Results *Screen Positive* (.); hCG, MoM 1.71 (.); hCG, Serum 33699 mIU/mL (.)
== END ==
PROVIDERS: PCP Student in an Organized Health Care Education/Training Program; Referring Provider Obstetrics & Gynecology; Visit Provider Obstetrics & Gynecology
DX: Z34.82 Encounter for supervision of other normal pregnancy, second trimester (principal); Z3A.18 18 weeks gestation of pregnancy
CPT/HCPCS: 36415; 82105; 82677; 84702; 86336

== ENCOUNTER → 2021-09-19 10:28 | Outpatient (CLI) | payer OTHER, SELFPAY ==
--- NOTE | 2021-09-19 10:29 | DI.US.S_ITS ---
PROCEDURE: US OB >= 14 WEEKS FETUS INDICATIONS: ANATOMY OUTSIDE/PRIOR DATING DATA: Last menstrual period (LMP): 04/25/2021. LMP-based estimated date of delivery (EVELINA): 01/30/2022. First dating scan (date and location): 07/04/2021 at . Estimated date of delivery (EVELINA) from first dating scan: 02/02/2022. The calculations are made using the ultrasound EVELINA of 02/02/2022. TECHNIQUE: Real-time scanning was performed of the fetus, with image documentation and biometric measurements. Endovaginal scanning: Not performed. COMPARISON: [facility], , OB <= 14 WEEKS FETUS, 07/04/2021, 15:11. FINDINGS: General: A single living intrauterine gestation is present. Presentation: Breech. Placenta: Placental position is anterior , without previa. Amniotic fluid index: 23.8 cm, normal range is 5-24 cm. Single deepest vertical pocket is 7.0 cm. heart rate: 147 beats per minute. Maternal cervical canal: 6.6 cm long. Normal lower limit is 2.5 cm. biometrics: Biparietal diameter: 21 weeks 2 days Head circumference: 21 weeks 2 days Abdominal circumference: 22 weeks 1 day Femur length: 20 weeks 6 days The estimated gestational age from the initial ultrasound: 20 weeks 4 days Composite gestational age from present scan: 21 weeks 3 days Estimated weight and percentile: 431 gm; 91% Anatomic survey: Neuro: Ventricles are non-dilated at less than 10 mm. Cisterna magna is normal at 3-11 mm. Cerebellum is normal in size and morphology. Question of mild skin thickening in the head and neck area. Nuchal skin fold: Normal at less than 6 mm between 14-21 weeks gestational age. Face: Nose and lips, facial profile are normal. Spine: No evidence for spina bifida. Heart: 4-chambered heart is present, with normal ventricular outflow tracts. Diaphragm: Diaphragm is intact. Stomach: Left-sided stomach is present. Kidneys: No hydronephrosis. Normal is less than 5 mm in 2nd trimester, less than 7 mm in 3rd trimester. Cord: 3-vessel cord has orthotopic insertion. Superior marginal cord insertion. Bladder: Normal in size. Extremities: All 4 extremities identified. IMPRESSION: Technically challenging exam. 1. A single living intrauterine gestation with appropriate interval growth. 2. The estimated weight is at the 91st percentile. 3. Question of mild skin thickening in the head and neck area. Recommend a follow-up scan. 4. Probable superior marginal cord insertion. Follow-up suggested. 5. JOSEE 23.8 cm, at the upper limits of normal (upper limits of normal is 24 cm). 6. Otherwise normal anatomic survey. We strive to produce accurate, complete, and clear reports of imaging services. To assist us in improving patient care, this report was composed using standard report templates and voice recognition software. Therefore, it may contain abnormal punctuation, insertions and/or omissions. Occasional wrong-word or sound-alike substitutions may occur. Though we review the report and make efforts to correct it, we do recommend that the report be read carefully in proper context to recognize any text inaccuracies. Dictated by: Marleni Márquez M.D. on 09/19/2021 at 13:24 Approved by: Marleni Márquez M.D. on 09/19/2021 at 13:52
[2021-09-19 20:32] LABS: GTT (PREG) 1 Hour PP 50gm Dose 108 mg/dL (76-139)
== END ==
PROVIDERS: PCP Student in an Organized Health Care Education/Training Program; Referring Provider Obstetrics & Gynecology; Visit Provider Obstetrics & Gynecology
DX: O36.62X0 Maternal care for excessive fetal growth, second trimester, not applicable or unspecified; O28.5 Abnormal chromosomal and genetic finding on antenatal screening of mother; Z3A.21 21 weeks gestation of pregnancy
CPT/HCPCS: 36415; 76811; 81420; 82950